=== PATIENT | female | born 1970 | race Caucasian/White ===

== ENCOUNTER 2022-12-17 12:42 | Emergency (ER) | payer BC, SELFPAY ==
--- NOTE | ~2022-12-17 | XR_ITS ---
EXAMINATION: XR foot LT min 3V DATE: 12/17/2022 13:41 INDICATION: Foot pain TECHNIQUE: Dorsoplantar, lateral, and 2 oblique views of the left foot were obtained. COMPARISON: None. FINDINGS: Bone alignment is normal. There is no fracture. There is mild soft tissue swelling of the f oot. Pes planus is. There is a plantar calcaneal enthesophyte. IMPRESSION: 1. Soft tissue swelling of the foot without acute osseous abnormality. Reviewed, dictated and finalized at location A.
[2022-12-17 12:55] VITALS: BP 153/107; PULSE 90; RESP 20; TEMP 36.6; O2SAT 99
--- NOTE | 2022-12-17 13:17 | ED.EXTPRO ---
HPI - Extremity Problem General Chief complaint: Extremity Problem,Nontraumatic Stated complaint: Right Foot Pain Time Seen by Provider: 12/17/22 13:17 Source: patient, RN notes reviewed and old records reviewed Mode of arrival: ambulatory Limitations: no limitations History of Present Illness HPI Narrative: 52-year-old female who presents to [facility] with complaints of shooting pain to the left side of her external foot towards the toes for the past 2-3 days. Patient reports that she had palpable knot to lateral mid aspect of her left foot for about 2 weeks but shooting pain not till past 2 days. Patient has history of arthritis to her left knee and recently had steroid injection the 17 of November.Patient reports that she has not had any injury to her left foot. MD Complaint: other (foot pain left) Onset (ago): day(s) (2) Location: left and other (foot) Severity scale (1-10): 4 Quality: aching and sharp Radiation: distal Related Data Home Medications Medication Instructions Recorded Confirmed Zyrtec 12/17/22 atorvastatin 10 mg tablet 10 mg PO DAILY 12/17/22 12/17/22 clonazepam 1 mg tablet 1 mg PO DAILY 12/17/22 12/17/22 dexmethylphenidate 20 mg 20 mg PO DAILY 12/17/22 12/17/22 capsule,extended release [id number] losartan 100 mg tablet mg 12/17/22 vilazodone 40 mg tablet mg 12/17/22 Allergies Allergy/AdvReac Type Severity Reaction Status Date / Time Sulfa (Sulfonamide Allergy Mild Other Verified 12/17/22 13:10 Antibiotics) Review of Systems Review of Systems: CONSTITUTIONAL: Denies fever, chills, or sweats. EYES: Denies visual changes, redness, or discharge. ENT: Denies rhinorrhea, congestion, sore throat, or otalgia. CARDIOVASCULAR: Denies chest pain, palpitations, or edema. RESPIRATORY: Denies cough or dyspnea. GASTROINTESTINAL: Denies abdominal pain, nausea, vomiting, or diarrhea. GENITOURINARY: Denies dysuria or hematuria. SKIN: Denies rash or itching.palpable knot mid lateral aspect lateral left foot MUSCULOSKELETAL: Denies back pain,positive for left foot pain lateral aspect shooting to toes , or myalgia. NEUROLOGIC: Denies headache, numbness, or weakness. PSYCHIATRIC: positive for history of anxiety or depression. All systems reviewed & are unremarkable except as noted in HPI and below PMFSH Past Medical History Medical History (Updated 12/19/22 @ 10:20 by Kari Orr NP) ADD (attention deficit disorder) Anxiety and depression Hyperlipidemia Hypertension Kidney stone MVP (mitral valve prolapse) Surgical History Surgical History (Updated 12/19/22 @ 10:20 by Kari Orr NP) History of cholecystectomy Previous section x2 Social History Social History (Updated 12/19/22 @ 10:16 by Kari Orr NP) Smoking status: Never smoker Alcohol intake: current Alcohol use details: rare social Substance use type: does not use Living arrangements: with family Gender identity (if verbalized by the patient): Female Comments At time of signature, agree with nursing past medical, surgical, social and family history. There is no relevant family history pertinent to the presenting complaint Exam Narrative: GENERAL: Well-appearing, well-nourished, and in no acute distress. HEAD: Normocephalic, atraumatic. EYES: PERRLA and EOMI. ENT: Nares clear, no rhinorrhea or epistaxis. Mucous membranes moist.TM's normal throat pink without swelling NECK: Supple.no lymphadenopathy CHEST: Clear to auscultation. No respiratory distress.SAO2 99% on room air HEART: Regular rate and rhythm. No murmur heard. Normal peripheral pulses. ABDOMEN: Soft, nontender, nondistended, normal active bowel sounds. EXTREMITIES: Normal range of motion. soft tissue swelling to left foot, small palpable knot to lateral mid aspect left foot, pain radiating to toes left foot, increased pain with ambulation. circulation sensation and mobility intact left foot with no redness or increased
== END 2022-12-17 14:43 | disposition home or self-care (01) ==
PROVIDERS: Emergency Provider Registered Nurse; PCP Internal Medicine
DX: M79.672 Pain in left foot (principal); E78.5 Hyperlipidemia, unspecified; I10 Essential (primary) hypertension; I34.1 Nonrheumatic mitral (valve) prolapse; F90.9 Attention-deficit hyperactivity disorder, unspecified type; F41.9 Anxiety disorder, unspecified
CPT/HCPCS: 73630; 99213; G0463